=== PATIENT | female | born 1950 | race African-American/Black ===

== ENCOUNTER 2018-12-08 22:15 | Observation (INO) | payer MEDICARE, OTHER ==
[2018-12-08 22:43] LABS: ABSOLUTE BASOPHILS # (AUTO) 0.1 10^3/uL (0.0-0.2); ABSOLUTE EOSINOPHILS # (AUTO) 0.1 10^3/uL (0.0-0.6); ABSOLUTE LYMPHOCYTES (AUTO) 2.3 10^3/uL (0.5-4.7); ABSOLUTE MONOCYTES (AUTO) 0.6 10^3/uL (0.1-1.4); ABSOLUTE NEUT (AUTO) 4.2 10^3/uL (1.7-8.2); EOSINOPHILS % (AUTO) 1.1 % (0-6); HEMATOCRIT 39.6 % (36.0-47.0); HEMOGLOBIN 13.4 g/dL (12.0-15.5); LYMPHOCYTES % (AUTO) 31.9 % (13-45); MEAN CORPUSCULAR HEMOGLOBIN 31.4 pg (27.0-33.4); MEAN CORPUSCULAR HGB CONC 33.9 g/dL (32.0-36.0); MEAN CORPUSCULAR VOLUME 93 fl (80-97); MONOCYTES % (AUTO) 8.6 % (3-13); PLATELET COUNT 323 10^3/uL (150-450); RED BLOOD COUNT 4.27 10^6/uL (3.72-5.28); RED CELL DISTRIBUTION WIDTH 13.4 % (11.5-14.0); SEGMENTED NEUTROPHILS % (AUTO) 57.4 % (42-78); TOTAL CELLS COUNTED % (AUTO) 100 %; WHITE BLOOD COUNT 7.3 10^3/uL (4.0-10.5)
[2018-12-08 23:02] LABS: ALBUMIN 4.5 g/dL (3.5-5.0); ALKALINE PHOSPHATASE 76 U/L (38-126); ANION GAP 15 (5-19); ASPARTATE AMINO TRANSFERASE 30 U/L (14-36); BILIRUBIN,DIRECT 0.2 mg/dL (0.0-0.4); BILIRUBIN,TOTAL 0.2 mg/dL (0.2-1.3); BLOOD UREA NITROGEN 27 mg/dL (7-20); CALCIUM 10.1 mg/dL (8.4-10.2); CARBON DIOXIDE 20 mmol/L (22-30); CHLORIDE 106 mmol/L (98-107); GLUCOSE 124 mg/dL (75-110); POTASSIUM 3.8 mmol/L (3.6-5.0); TOTAL PROTEIN 7.6 g/dL (6.3-8.2)
[2018-12-08] MEDS ORDERED: NITROGLYCERIN 0.4 MG/TAB 25 TAB/BOTTLE SL PRN (23:13)
--- NOTE | 2018-12-08 23:47 | ER Document Report ---
ED General - General Chief Complaint: Chest Pain Stated Complaint: CHEST PAIN Time Seen by Provider: 12/08/18 22:53 Primary Care Provider: DAVID ALDANA MD [Primary Care Provider] - Follow up as needed - HPI Notes: Patient is a 68-year-old female who presents emergency department for evaluation of chest tightness. She states this started after about 6 PM. They were walking around. It seemed to get progressively worse. She states she has some associated difficulty breathing, but could not really associated with being worse than her recent shortness of breath. She states she has a history of allergies. She was in a home area, attributed it to that. She had some nausea, but this was after eating. She denies any emesis. The pain does not radiate. She states it is worse it was a 7 out of 10. She received aspirin and nitroglycerin in route via EMS. She states her pain is currently a 3 out of 10. She has had a negative stress test in the past, but it was over 3 years ago. - Related Data Allergies/Adverse Reactions: Sulfa (Sulfonamide Antibiotics) Allergy (Verified 12/08/18 22:36) sulfamethoxazole [From Bactrim] Allergy (Verified 12/08/18 22:36) trimethoprim [From Bactrim] Allergy (Verified 12/08/18 22:36) Past Medical History - General Information source: Patient - Social History Smoking Status: Never Smoker Family History: CVA Patient has suicidal ideation: No Patient has homicidal ideation: No - Past Medical History Cardiac Medical History: Reports: Hx Hypercholesterolemia, Hx Hypertension Pulmonary Medical History: Reports: Other - Seasonal allergies Psychiatric Medical History: Reports: Hx Depression, Other - Insomnia Review of Systems - Review of Systems Constitutional: No symptoms reported EENT: No symptoms reported Cardiovascular: See HPI Respiratory: See HPI Gastrointestinal: See HPI Genitourinary: No symptoms reported Musculoskeletal: No symptoms reported Skin: No symptoms reported Neurological/Psychological: No symptoms reported Physical Exam - Vital signs Vitals: Resp Pulse Ox 20 97 12/08/18 22:19 12/08/18 22:19 - Notes Notes: Vital signs reviewed, please refer to chart. Head is normocephalic, atraumatic. Pupils equal round, reactive to light. Neck is supple without meningismus. Heart is regular rate and rhythm. Lungs are clear to auscultation bilaterally. Abdomen is soft, nontender, normoactive bowel sounds throughout. Extremities without cyanosis, clubbing. Posterior calves are nontender. Peripheral pulses are equal. Skin is cool and mildly diaphoretic. Patient is awake, alert, neurological exam is nonfocal. Course - Re-evaluation Re-evalutation: 12/09/18 00:33 This is a 68-year-old female high blood pressure, high cholesterol, who presents emergency department for evaluation of chest tightness. It was worsened with exertion. She is never had anything similar. She describes as a tightness with associated shortness of breath and nausea. On arrival her pain is diminished after receiving nitroglycerin. She was given a second nitroglycerin is now chest pain-free. She is remained stable throughout the course of her stay. Initial EKG failed to reveal any acute ST elevation. Laboratory investigation showed mildly abnormal renal function. I do not have a baseline creatinine for comparison. Her troponin was negative. At this time I spoke with Dr. Fontenot. Given her high heart score and concern for her presentation, we will order repeat troponin. Patient remained stable, will continue to monitor. 12/09/18 02:04 Repeat troponin is negative. Patient is chest pain-free, Nitropaste is in place. Will admit the patient for further care. - Vital Signs Vital signs: Temp Pulse Resp BP Pulse Ox 98.8 F 20 174/87 H 98 12/08/18 22:37 12/08/18 22:20 12/09/18 00:46 12/09/18 00:46 - Laboratory Result Diagrams: 12/08/18 22:30 12/08/18 22:30 Laboratory results interpreted by me: 12/08/18 22:30 Carbon Dioxide 20 L BUN 27 H Creatinine 1.59 H Est GFR ( Amer) 39 L Est GFR (MDRD) Non-Af 32 L Glucose 124 H - Diagnostic Test Radiology reviewed: Image reviewed - EKG Interpretation by Me Additional EKG results interpreted by me: 12/08/18 23:46 Sinus mechanism with a rate of 85 bpm. Normal axis and intervals, no acute ST changes concerning for ischemia or infarction. Discharge - Discharge Clinical Impression: Chest pain Condition: Stable Disposition: ADMITTED OBSERVATION Admitting Provider: Po (Hospitalist) Unit Admitted: Telemetry Referrals: DAVID ALADNA MD [Primary Care Provider] - Follow up as needed
[2018-12-09] MEDS ORDERED: NITROGLYCERIN 2% OINTMENT 1 GM PACKET TP ONE (00:31)
--- NOTE | 2018-12-09 00:46 | RADIOLOGY REPORT (SQ) ---
XR CHEST 1 VIEW EXAM DATE: 12/08/2018 11:46 PM CDT HISTORY: Chest pain. COMPARISON: None. FINDINGS: The heart size is within normal limits. No consolidation, pleural effusion, or pneumothorax is seen. No acute bony findings. IMPRESSION: No evidence of acute cardiopulmonary disease.
[2018-12-09] MEDS ORDERED: ACETAMINOPHEN 325 MG TABLET PO PRN (02:05)
[2018-12-09] MEDS ORDERED: MAG HYDROX/AL HYDROX/SIMETH SUSP 30 ML UDCUP PO PRN (02:05)
[2018-12-09] MEDS ORDERED: NITROGLYCERIN 0.4 MG/TAB 25 TAB/BOTTLE SL PRN (02:05)
[2018-12-09] MEDS ORDERED: LOSARTAN POTASSIUM 50 MG TABLET PO ONE (02:15)
[2018-12-09] MEDS ORDERED: ENALAPRILAT DIHYDRATE INJ/PF 1.25 MG/1 ML SDV IV ONE (04:15)
[2018-12-09] MEDS ORDERED: LORAZEPAM 0.5 MG TABLET PO ONE (05:00)
[2018-12-09] MEDS ORDERED: REGADENOSON INJ 0.4 MG/5 ML DISP.SYRIN IV ONE (05:00)
[2018-12-09] MEDS ORDERED: LORAZEPAM 0.5 MG TABLET PO PRN (07:59)
--- NOTE | 2018-12-09 08:44 | EKG REPORT ---
SEVERITY:- ABNORMAL ECG - SINUS RHYTHM INFERIOR INFARCT, AGE INDETERMINATE : Confirmed by: Tremaine Soliz MD 09-Dec-2018 08:43:22
[2018-12-09 09:05] LABS: HEMATOCRIT 36.6 % (36.0-47.0); HEMOGLOBIN 12.3 g/dL (12.0-15.5); MEAN CORPUSCULAR HGB CONC 33.6 g/dL (32.0-36.0); MEAN CORPUSCULAR VOLUME 92 fl (80-97); PLATELET COUNT 292 10^3/uL (150-450); RED BLOOD COUNT 3.96 10^6/uL (3.72-5.28); RED CELL DISTRIBUTION WIDTH 13.4 % (11.5-14.0); WHITE BLOOD COUNT 6.8 10^3/uL (4.0-10.5)
[2018-12-09 09:30] LABS: ANION GAP 12 (5-19); BLOOD UREA NITROGEN 32 mg/dL (7-20); CALCIUM 9.9 mg/dL (8.4-10.2); CARBON DIOXIDE 21 mmol/L (22-30); CHLORIDE 105 mmol/L (98-107); GLUCOSE 112 mg/dL (75-110); POTASSIUM 3.9 mmol/L (3.6-5.0)
[2018-12-09] MEDS ORDERED: (PENDING PHARMACY ID) (Azelastine/Fluticasone [Dymista Nasal Spray] 1 SPRAY) NASL SCH (10:00)
[2018-12-09] MEDS ORDERED: LOSARTAN POTASSIUM 50 MG TABLET PO SCH (10:00)
[2018-12-09] MEDS: SIMVASTATIN 40 MG TABLET PO SCH (10:01)
[2018-12-09] MEDS: MONTELUKAST SODIUM 10 MG TABLET PO SCH (10:03)
[2018-12-09] MEDS: AMLODIPINE BESYLATE 5 MG TABLET PO SCH (10:03)
[2018-12-09] MEDS: ASPIRIN 81 MG TABLET, ENT COATED PO SCH (10:03)
[2018-12-09] MEDS: CITALOPRAM HYDROBROMIDE 20 MG TABLET PO SCH (10:03)
[2018-12-09] MEDS: TRIAMTERENE/HYDROCHLOROTHIAZIDE 37.5-25 MG TABLET PO SCH (10:03)
[2018-12-09] MEDS: CETIRIZINE 5 MG TABLET PO SCH (10:03)
[2018-12-09] MEDS: HYDRALAZINE HCL 25 MG TABLET PO SCH ×3 (10:04→22:14)
[2018-12-09] MEDS: LISINOPRIL 10 MG TABLET PO SCH (10:06)
[2018-12-09 10:44] LABS: APPEARANCE,URINE SLIGHTLY-CLOUDY; BILIRUBIN,URINE NEGATIVE (NEGATIVE); COLOR,URINE YELLOW; GLUCOSE, URINE NEGATIVE (NEGATIVE); KETONES,URINE TRACE mg/dL (NEGATIVE); LEUKOCYTE ESTERASE,URINE MODERATE (NEGATIVE); NITRITE,URINE NEGATIVE (NEGATIVE); PROTEIN,URINE NEGATIVE (NEGATIVE); URINE SPECIFIC GRAVITY 1.027
--- NOTE | 2018-12-09 15:11 | PDOC PROGRESS REPORT ---
Subjective Progress Note for:: 12/09/18 Subjective:: The patient is a 68-year-old female with a past medical history of hypertension, hyperlipidemia, anxiety and depression, seasonal allergies, and obesity who was admitted early this morning by the insurance underwriter sales for chest pain. Patient was seen on afternoon rounds with family members present. Additional details regarding her presenting complaint were obtained. The patient reported several hours of progressively worsening dyspnea, chest heaviness, and generalized weakness culminating in chest pressure and a syncopal episode. Does not appear that the syncopal episode was related to any of the emergency providers and therefore has unfortunately gone unevaluated. She reports that she is feeling well at present, does continue to have postnasal drip with a nonproductive cough. She denies any additional symptoms of dyspnea, dizziness/lightheadedness, syncope/near syncope, or chest discomfort. However, the patient has not yet been ambulatory. She denies fever, chills, chest pain, palpitations, dyspnea, orthopnea, abdominal pain, nausea vomiting diarrhea. She is actually requesting to be discharged home today; given the syncopal episode, she is advised that I cannot safely discharge her until further evaluation is completed. All questions and concerns were addressed. Nursing was at bedside during assessment; no specific concerns from their perspective. Reason For Visit: CP,CAD,ARF Physical Exam Vital Signs: Temp Pulse Resp BP Pulse Ox 97.6 F 74 18 130/55 H 97 12/09/18 07:28 12/09/18 07:28 12/09/18 07:28 12/09/18 07:28 12/09/18 07:28 Intake & Output 12/08/18 12/09/18 12/10/18 06:59 06:59 06:59 Weight 82.6 kg General appearance: PRESENT: no acute distress, cooperative, well-developed, well-nourished - Overweight Head exam: PRESENT: atraumatic, normocephalic Eye exam: PRESENT: conjunctiva pink, EOMI, PERRLA. ABSENT: scleral icterus Ear exam: PRESENT: normal external ear exam Mouth exam: PRESENT: moist, tongue midline Neck exam: ABSENT: carotid bruit, JVD, lymphadenopathy, thyromegaly Respiratory exam: PRESENT: clear to auscultation jaja, symmetrical, unlabored. ABSENT: rales, rhonchi, wheezes Cardiovascular exam: PRESENT: RRR, +S1, +S2. ABSENT: diastolic murmur, rubs, systolic murmur Pulses: PRESENT: normal dorsalis pedis pul Vascular exam: PRESENT: normal capillary refill GI/Abdominal exam: PRESENT: normal bowel sounds, soft. ABSENT: distended, guarding, mass, organolmegaly, rebound, tenderness Rectal exam: PRESENT: deferred Extremities exam: PRESENT: full ROM. ABSENT: calf tenderness, clubbing, pedal edema Neurological exam: PRESENT: alert, awake, oriented to person, oriented to place, oriented to time, oriented to situation, CN II-XII grossly intact. ABSENT: motor sensory deficit Psychiatric exam: PRESENT: appropriate affect, normal mood. ABSENT: homicidal ideation, suicidal ideation Skin exam: PRESENT: dry, intact, warm. ABSENT: cyanosis, rash Results Laboratory Results: 12/09/18 08:47 12/09/18 08:47 12/08/18 12/08/18 12/09/18 22:30 22:30 07:11 WBC 7.3 RBC 4.27 Hgb 13.4 Hct 39.6 MCV 93 MCH 31.4 MCHC 33.9 RDW 13.4 Plt Count 323 Seg Neutrophils % 57.4 Sodium 141.4 Potassium 3.8 Chloride 106 Carbon Dioxide 20 L Anion Gap 15 BUN 27 H Creatinine 1.59 H Est GFR ( Amer) 39 L Glucose 124 H Calcium 10.1 Total Bilirubin 0.2 AST 30 Alkaline Phosphatase 76 Total Protein 7.6 Albumin 4.5 TSH 1.34 Urine Color Urine Appearance Urine pH Ur Specific [place] Urine Protein Urine Glucose (UA) Urine Ketones Urine Blood Urine Nitrite Ur Leukocyte Esterase Urine WBC (Auto) Urine RBC (Auto) 12/09/18 12/09/18 12/09/18 08:47 08:47 10:12 WBC 6.8 RBC 3.96 Hgb 12.3 Hct 36.6 MCV 92 MCH 31.0 MCHC 33.6 RDW 13.4 Plt Count 292 Seg Neutrophils % Sodium 138.3 Potassium 3.9 Chloride 105 Carbon Dioxide 21 L Anion Gap 12 BUN 32 H Creatinine 1.46 H Est GFR ( Amer) 43 L Glucose 112 H Calcium 9.9 Total Bilirubin AST Alkaline Phosphatase Total Protein Albumin TSH Urine Color YELLOW Urine Appearance SLIGHTLY-CLOUDY Urine pH 5.0 Ur Specific [place] 1.027 Urine Protein NEGATIVE Urine Glucose (UA) NEGATIVE Urine Ketones TRACE H Urine Blood NEGATIVE Urine Nitrite NEGATIVE Ur Leukocyte Esterase MODERATE H Urine WBC (Auto) 56 Urine RBC (Auto) 6 12/08/18 12/09/18 12/09/18 22:30 01:10 07:11 Troponin I < 0.012 < 0.012 < 0.012 Impressions: Chest X-Ray 12/08/18 23:46 IMPRESSION: No evidence of acute cardiopulmonary disease. Assessment and Plan - Diagnosis (1) Syncope and collapse Is this a current diagnosis for this admission?: Yes Plan: The patient has been admitted to the medical floor and continuous cardiac telemetry. We will obtain orthostatic blood pressures. We will check d-dimer to rule out pulmonary embolus. Serial troponins are negative x3. Carotid Doppler pending. CT head pending. Nuclear stress test pending. Fall precautions. (2) Acute renal failure Is this a current diagnosis for this admission?: Yes Plan: Likely prerenal secondary to syncope and collapse. No baseline Laboratory work is available. Creatinine 1.59 on admission; down slightly to 1.46. We will obtain orthostatic vital signs and then start gentle IV fluids. Encourage p.o. fluids. Avoid nephrotoxic medications as able. (3) Chest pain Qualifiers: Chest pain type: unspecified Qualified Code(s): R07.9 - Chest pain, unspecified Is this a current diagnosis for this admission?: Yes Plan: EKG demonstrated normal sinus rhythm. Chest x-ray is benign. Serial troponins are negative. TSH is normal. We will obtain lipid panel and A1c with a.m. lab work. D-dimer to rule out PE. Management of hypertension. Daily aspirin and statin therapy. Nuclear stress test pending. (4) Hypertension Is this a current diagnosis for this admission?: Yes Plan: Continue home dose lisinopril and Maxide. Start amlodipine 5 mg daily and hydralazine 25 mg p.o. every 8 hours. Cardiac diet. - Time Time Spent with patient: 35 or more minutes Anticipated discharge: Home Within: within 24 hours
[2018-12-09 15:38] LABS: CHOLESTEROL 132.85 mg/dL (0-200); TRIGLYCERIDES 103 mg/dL (<150)
[2018-12-09 15:57] LABS: DIRECT LDL 79 mg/dL (<100)
--- NOTE | 2018-12-09 16:04 | RADIOLOGY REPORT (SQ) ---
EXAM DESCRIPTION: CT HEAD WITHOUT COMPLETED DATE/TIME: 12/09/2018 3:57 pm REASON FOR STUDY: syncope E05.00 THYROTOXICOSIS W DIFFUSE GOITER W/O THYROTOXIC CRISIS R07.9 CHEST PAIN, UNSPECIFIED R55 SYNCOPE AND COLLAPSE COMPARISON: None. TECHNIQUE: Axial images acquired through the brain without intravenous contrast. Images reviewed wi th bone, brain and subdural windows. Additional sagittal and coronal reconstructions were generated. Images stored on PACS. All CT scanners at this facility use dose modulation, iterative reconstruction, and/or weight based d osing when appropriate to reduce radiation dose to as low as reasonably achievable (ALARA). [facility]: Dose Right [facility]: CareDose [facility]: Dose Right [facility]: Teradose 4D [facility]: [employer] RADIATION DOSE: CT Rad equipment meets quality standard of care and radiation dose reduction techniq ues were employed. CTDIvol: 53.2 mGy. DLP: 964 mGy-cm. mGy. LIMITATIONS: None. FINDINGS: VENTRICLES: Normal size and contour. CEREBRUM: No masses. No hemorrhage. No midline shift. No evidence for acute infarction. Normal gra y/white matter differentiation. No areas of low density in the white matter. CEREBELLUM: No masses. No hemorrhage. No alteration of density. No evidence for acute infarction. EXTRAAXIAL SPACES: No fluid collections. No masses. ORBITS AND GLOBE: No intra- or extraconal masses. Normal contour of globe without masses. CALVARIUM: No fracture. PARANASAL SINUSES: No fluid or mucosal thickening. SOFT TISSUES: No mass or hematoma. OTHER: No other significant finding. IMPRESSION: NORMAL BRAIN CT WITHOUT CONTRAST. EVIDENCE OF ACUTE STROKE: NO. COMMENT: Quality ID # 436: Final reports with documentation of one or more dose reduction techniques (e.g., Automated exposure control, adjustment of the mA and/or kV according to patient size, use of iterative reconstruction technique) TECHNICAL DOCUMENTATION: JOB ID: [id number] [employer]- All Rights Reserved Reading location - IP/workstation name: [email or web address]
--- NOTE | 2018-12-09 20:20 | RADIOLOGY REPORT (SQ) ---
EXAM DESCRIPTION: CT CHEST ANGIOGRAPHY WITHOUT THEN WITH IV CONTRAST COMPLETED DATE/TME: 12/09/2018 00:00 CLINICAL HISTORY: 68 years, Female, syncope, dyspnea; elevated d-dimer COMPARISON: None. TECHNIQUE: CT of the chest was after the uneventful administration of intravenous contrast. Oblique MIPS were created. Images stored on PACS. All CT scanners at this facility use dose modulation, iterative reconstruction, and/or weight based dosing when appropriate to reduce radiation dose to as low as reasonably achievable (ALARA). [facility]: Dose Right [facility]: CareDose [facility]: Dose Right [facility]: Teradose 4D [facility]: [email or web address] LIMITATIONS: None. FINDINGS: Central airways are patent. Lung windows show bands of opacity about both lung bases, indicating areas of atelectasis and/or scar. Lungs are otherwise clear. Mediastinal windows show a low-density lesion located within the right lobe of the thyroid gland measuring 1.7 x 1.3 cm in size on image 19 of series 3, indeterminate. Scalp are evident about the coronary vessels. There is a small pericardial effusion. Study is adequate for the evaluation of pulmonary emboli. No filling defects are identified to the proximal segmental level. Limited evaluation of the upper abdomen reveals a few subcentimeter low-density lesions about the liver parenchyma which are too small to accurately characterize. No additional suspicious findings are evident within the imaged upper abdomen. There is a small hiatal hernia. Bone windows show no destructive osseous lesions. There is slight leftward curvature of the thoracic spine. IMPRESSION: No evidence of pulmonary embolism or other acute abnormality within the chest. 1.7 cm incidental thyroid nodule. Recommend thyroid US. Reference: J Am Shital Radiol. 2015 Mar;12(2): 143-50 TECHNICAL DOCUMENTATION: Quality ID # 436: Final reports with documentation of one or more dose reduction techniques (e.g., Automated exposure control, adjustment of the mA and/or kV according to patient size, use of iterative reconstruction technique) copyright 2011 [employer]- All Rights Reserved
[2018-12-09] MEDS ORDERED: ZOLPIDEM TARTRATE 5 MG TABLET PO SCH (22:00)
[2018-12-10] MEDS: HYDRALAZINE HCL 25 MG TABLET PO SCH ×2 (06:24→14:53)
[2018-12-10] MEDS: CITALOPRAM HYDROBROMIDE 20 MG TABLET PO SCH ×2 (10:48→10:59)
[2018-12-10] MEDS: TRIAMTERENE/HYDROCHLOROTHIAZIDE 37.5-25 MG TABLET PO SCH (10:48)
[2018-12-10] MEDS: AMLODIPINE BESYLATE 5 MG TABLET PO SCH (10:54)
[2018-12-10 10:55] VITALS: BP 122/52
[2018-12-10] MEDS: LISINOPRIL 10 MG TABLET PO SCH (10:55)
[2018-12-10] MEDS: SIMVASTATIN 40 MG TABLET PO SCH (10:55)
[2018-12-10] MEDS: ASPIRIN 81 MG TABLET, ENT COATED PO SCH (10:55)
[2018-12-10] MEDS: CETIRIZINE 5 MG TABLET PO SCH (10:55)
[2018-12-10] MEDS: MONTELUKAST SODIUM 10 MG TABLET PO SCH (10:55)
[2018-12-10] MEDS ORDERED: ACETAMINOPHEN 325 MG TABLET PO PRN (11:00)
--- NOTE | 2018-12-10 11:49 | RADIOLOGY REPORT (SQ) ---
EXAM DESCRIPTION: U/S THYROID/SFT TISS HD NECK COMPLETED DATE/TIME: 12/10/2018 8:53 am REASON FOR STUDY: 1.[address] E05.00 THYROTOXICOSIS W DIFFUSE GOITER W/O THYROTOXIC CR CHELO R07.9 CHEST PAIN, UNSPECIFIED R55 SYNCOPE AND COLLAPSE COMPARISON: None. TECHNIQUE: Dynamic and static florence-scale images acquired of the thyroid gland. Selected additional c olor/power Doppler images recorded. All images stored to PACS. LIMITATIONS: None. FINDINGS: RIGHT LOBE: Normal size. Homogeneous echotexture. 1.9 by 1.7 x 1.8 cm well-circumscribed isoechoic mixed cystic and solid nodule. No internal calcifications. LEFT LOBE: Normal size. Homogeneous echotexture. Slightly smaller but similar morphology isoechoic mixed solid cystic nodule lower pole. No internal calcifications. ISTHMUS: Normal size. Homogeneous echotexture. No cystic or solid masses. OTHER: No other significant finding. IMPRESSION: Solitary nodules in both lobes. 1 year follow-up is recommended. COMMENT: TR-2 TECHNICAL DOCUMENTATION: JOB ID: [id number] [employer]- All Rights Reserved Reading location - IP/workstation name: [email or web address]
--- NOTE | 2018-12-10 15:15 | RADIOLOGY REPORT (SQ) ---
EXAM DESCRIPTION: CAROTID DOPPLER COMPLETED DATE/TIME: 12/10/2018 2:42 pm REASON FOR STUDY: syncope E05.00 THYROTOXICOSIS W DIFFUSE GOITER W/O THYROTOXIC CRISIS R07.9 CHEST PAIN, UNSPECIFIED R55 SYNCOPE AND COLLAPSE COMPARISON: None. TECHNIQUE: Grayscale ultrasound, Doppler velocity and spectra, and color Doppler images acquired of the extra-cranial carotid and vertebral arteries. Images stored on PACS. LIMITATIONS: None. FINDINGS: RIGHT CAROTID CCA Velocities: Within normal limits. ICA Velocities Peak systolic 0.94 m/s. End diastolic 0.19 m/s. Proximal ICA/CCA peak systolic ratio 1.05. Heterogenous plaque in the carotid bulb and internal carotid artery. LEFT CAROTID CCA Velocities: Within normal limits. ICA Velocities Peak systolic 1.91 m/s. End diastolic 0.43 m/s. Proximal ICA/CCA peak systolic ratio 1.59. Heterogenous plaque in the carotid bulb and proximal internal carotid artery. VERTEBRAL ARTERIES: Antegrade flow. Normal waveforms. SUBCLAVIAN ARTERIES: No finding. OTHER: No other significant finding. IMPRESSION: BILATERAL PLAQUE. LESS THAN 50% STENOSIS OF THE RIGHT INTERNAL CAROTID ARTERY. 50- 69% STENOSIS OF THE LEFT INTERNAL CAROTID ARTERY. COMMENT: Quality ID #195: Velocity criteria are extrapolated from the diameter data as defined by t he Society of Radiologists in Ultrasound Consensus Conference. Radiology 2003: 229; 340-346. TECHNICAL DOCUMENTATION: JOB ID: [id number] [employer]- All Rights Reserved Reading location - IP/workstation name: [email or web address]
[2018-12-10] MEDS ORDERED: NORMAL SALINE 1000 ML 1,000 ML IV ONE (15:32)
--- NOTE | 2018-12-10 20:15 | PDOC H&P ---
History of Present Illness Admission Date/PCP: 12/09/18 02:40 DAVID ALDANA MD Patient complains of: Shortness of breath and chest tightness History of Present Illness: KALA ELLISON is a 68 year old female with a past medical history of hypertension, allergic bronchitis and anxiety. She presents with 6 hours of chest tightness associated with shortness of breath and nausea without vomiting prompting evaluation emergency room where she is found to have uncontrolled hypertension, an EKG with pathologic inferior wall Q waves and an elevated creatinine of 1.5. She receives Nitropaste and referred to the hospitalist for admission. Patient admits several episodes previously which were thought secondary to panic. Her last cardiac stress test was 3 years ago. She is unaware of an abnormal EKG. She denies chest pain, recent change in medications and is otherwise felt well. Past Medical History Cardiac Medical History: Reports: Hyperlipidema, Hypertension Pulmonary Medical History: Reports: Bronchitis, Other - Seasonal allergies Psychiatric Medical History: Reports: Depression, General Anxiety Disorder, Other - Insomnia Social History Information Source: Patient Lives with: Spouse/Significant other Smoking Status: Never Smoker Electronic Cigarette use?: No Frequency of Alcohol Use: None Hx Recreational Drug Use: No Drugs: None Hx Prescription Drug Abuse: No - Advance Directive Resuscitation Status: Full Code Family History Family History: CVA Parental Family History Reviewed: Yes Children Family History Reviewed: Yes Sibling(s) Family History Reviewed.: Yes Medication/Allergy Home Medications: Azelastine/Fluticasone [Dymista Nasal [place]] 1 spray NASL DAILY 12/09/18 Citalopram Hydrobromide [Citalopram HBr] 40 mg PO DAILY 12/09/18 Ipratropium [place] [Atrovent 0.06% Nasal [place]] 2 spray NASL QID PRN 12/09/18 Levocetirizine Dihydrochloride [Xyzal] 5 mg PO DAILY 12/09/18 Lisinopril [Prinivil] 10 mg PO DAILY 12/09/18 Lorazepam [Ativan 0.5 mg Tablet] 0.5 mg PO BIDP PRN 12/09/18 Meloxicam [Mobic] 7.5 mg PO PRN PRN 12/09/18 Montelukast Sodium [Singulair] 10 mg PO DAILY 12/09/18 Simvastatin [Zocor 40 mg Tablet] 40 mg PO DAILY 12/09/18 Triamterene/Hydrochlorothiazid [Triamterene-Hctz 37.5-25 mg Tb] 37.5 mg PO DAILY 12/09/18 Ubidecarenone [Coq-10] 30 mg PO DAILY 12/09/18 Zolpidem Tartrate [Ambien] 10 mg PO QHS 12/09/18 Allergies/Adverse Reactions: Sulfa (Sulfonamide Antibiotics) Allergy (Verified 12/08/18 22:36) sulfamethoxazole [From Bactrim] Allergy (Verified 12/08/18 22:36) trimethoprim [From Bactrim] Allergy (Verified 12/08/18 22:36) Review of Systems Constitutional: ABSENT: chills, fever(s), headache(s), weight gain, weight loss Eyes: ABSENT: visual disturbances Ears: ABSENT: hearing changes Cardiovascular: ABSENT: chest pain, dyspnea on exertion, edema, orthropnea, palpitations Respiratory: ABSENT: cough, hemoptysis Gastrointestinal: ABSENT: abdominal pain, constipation, diarrhea, hematemesis, h ematochezia, nausea, vomiting Genitourinary: ABSENT: dysuria, hematuria Musculoskeletal: ABSENT: joint swelling Integumentary: ABSENT: rash, wounds Neurological: ABSENT: abnormal gait, abnormal speech, confusion, dizziness, focal weakness, syncope Psychiatric: ABSENT: anxiety, depression, homidical ideation, suicidal ideation Endocrine: ABSENT: cold intolerance, heat intolerance, polydipsia, polyuria Hematologic/Lymphatic: ABSENT: easy bleeding, easy bruising Physical Exam Vital Signs: Temp Pulse Resp BP Pulse Ox 97.8 F 91 18 188/89 H 98 12/09/18 03:28 12/09/18 03:28 12/09/18 03:28 12/09/18 03:28 12/09/18 03:28 Intake & Output 12/07/18 12/08/18 12/09/18 11:59 11:59 11:59 Weight 82.6 kg General appearance: PRESENT: no acute distress, well-developed, well-nourished Head exam: PRESENT: atraumatic, normocephalic Eye exam: PRESENT: conjunctiva pink, EOMI, PERRLA. ABSENT: scleral icterus Ear exam: PRESENT: normal external ear exam Mouth exam: PRESENT: moist, tongue midline Neck exam: ABSENT: carotid bruit, JVD, lymphadenopathy, thyromegaly Respiratory exam: PRESENT: clear to auscultation jaja. ABSENT: rales, rhonchi, wheezes Cardiovascular exam: PRESENT: RRR. ABSENT: diastolic murmur, rubs, systolic murmur Pulses: PRESENT: normal dorsalis pedis pul Vascular exam: PRESENT: normal capillary refill GI/Abdominal exam: PRESENT: normal bowel sounds, soft. ABSENT: distended, guarding, mass, organolmegaly, rebound, tenderness Rectal exam: PRESENT: deferred Extremities exam: PRESENT: full ROM. ABSENT: calf tenderness, clubbing, pedal edema Neurological exam: PRESENT: alert, awake, oriented to person, oriented to place, oriented to time, oriented to situation, CN II-XII grossly intact. ABSENT: motor sensory deficit Psychiatric exam: PRESENT: appropriate affect, normal mood. ABSENT: homicidal ideation, suicidal ideation Skin exam: PRESENT: dry, intact, warm. ABSENT: cyanosis, rash Results Laboratory Results: 12/08/18 22:30 12/08/18 22:30 12/08/18 12/08/18 22:30 22:30 WBC 7.3 RBC 4.27 Hgb 13.4 Hct 39.6 MCV 93 MCH 31.4 MCHC 33.9 RDW 13.4 Plt Count 323 Seg Neutrophils % 57.4 Sodium 141.4 Potassium 3.8 Chloride 106 Carbon Dioxide 20 L Anion Gap 15 BUN 27 H Creatinine 1.59 H Est GFR ( Amer) 39 L Glucose 124 H Calcium 10.1 Total Bilirubin 0.2 AST 30 Alkaline Phosphatase 76 Total Protein 7.6 Albumin 4.5 12/08/18 12/09/18 22:30 01:10 Troponin I < 0.012 < 0.012 Impressions: Chest X-Ray 12/08/18 23:46 IMPRESSION: No evidence of acute cardiopulmonary disease. Assessment and Plan - Diagnosis (1) Chest pain Is this a current diagnosis for this admission?: Yes Plan: Atypical chest pain though the patient's pain is atypical there are multiple risk factors for coronary artery disease and subsequently will observe and evaluation of acute coronary syndrome versus coronary artery disease with anginal equivalents. Cardiac monitoring blood pressure Q6 hours ,TSH, lipid profile, serial cardiac enzymes and cardiac stress test (2) Anxiety Is this a current diagnosis for this admission?: Yes Plan: Follow-up TSH, outpatient regiment with PRN Ativan, consider longer acting agent (3) Acute renal failure Is this a current diagnosis for this admission?: Yes Plan: Avoid nephrotoxic meds and doses, follow-up UA (4) Hypertension Is this a current diagnosis for this admission?: Yes Plan: Likely secondary to uncontrolled anxiety, benzodiazepine followed by CINDY inhibitor, hydralazine and nitrate.
--- NOTE | 2018-12-10 23:26 | DRAGON STRESS TEST REPORT ---
Intravenous Lexiscan Cardiolite stress test using single photon emmision computerized tomography. Date of procedure: 12/10/2018. Ordering Provider: Dr. Yoshi Fontenot. Patient's status: IN Patient. Indication: Chest pain. Coronary risk factors: Age, hypertension, and dyslipidemia. Resting EKG: Sinus Rhythm. Nonspecific T changes anterior leads. Stress EKG: No changes of ischemia. The patient had no chest pain or arrhythmias seen. Note that the patient's complaint of generalized fatigue and weakness. The monitor showed sinus tachycardia and the systolic blood pressure dropped to 70. There were no EKG changes of ischemia. The patient was given 250 mL of normal saline bolus. Subsequent to this the patient's blood pressure came up to 130/55 and the patient's symptoms resolved. Reason for termination: Protocol. Conclusions: Normal EKG and transient hypotensive hemodynamic response to IV Lexiscan. The hypotension responded to IV fluids. Nuclear data: At rest the patient was given 12.96 millicuries of technetium 99m sestamibi injected intravenously. As per protocol rest non gated SPECT images were obtained. Subsequently the patient was given intravenous Lexiscan at a dose of 0.4 mg in 5 mL intravenously, followed by flush with normal saline. Subsequently the stress dose of 36.9 millicuries of technetium 99m sestamibi was injected intravenously. As per protocol stress gated images were obtained. Nuclear interpretation: Review of images showed that all segments of the myocardium had normal perfusion at rest, and normal perfusion post stress with IV Lexiscan. All segments of the myocardium had normal motion, contraction, and thickening by gated study. T. I D. ratio was read by the computer as abnormal at 1.38. Visually this is not reliable.. There is no transient ischemic dilatation of the left ventricle. Computer read rest, and stress left ventricular ejection fraction were 82 %, and 68 %, respectively. Visually both the stress and rest ejection fractions were normal, and greater than 65%. Conclusion: 1. There is no scintigraphic evidence of Lexiscan induced myocardial ischemia. 2. There is no scintigraphic evidence of myocardial infarction/scar. Recommendations: Aggressive risk factor modification, and treating the underlying co- morbidities. I have spoken to Ms. Katerin Hayward, nurse practitioner to take care of the patient about the patient's transient hypotension which was resolved with IV fluids. Later left a message for her that the stress test was negative for ischemia or PA. OZIEL
--- NOTE | 2018-12-11 13:43 | PDOC DISCHARGE SUMMARY ---
Impression - Admit/DC Date/PCP Admission Date/Primary Care Provider: 12/09/18 02:40 DAVID ALDANA MD Discharge Date: 12/10/18 - Discharge Diagnosis (1) Syncope and collapse Is this a current diagnosis for this admission?: Yes (2) Acute renal failure Is this a current diagnosis for this admission?: Yes (3) Chest pain Is this a current diagnosis for this admission?: Yes (4) Hypertension Is this a current diagnosis for this admission?: Yes - Additional Information Resuscitation Status: Full Code Discharge Diet: Cardiac Discharge Activity: Activity As Tolerated, Balance Activity w/Rest Referrals: DAVID ALDANA MD [Primary Care Provider] - 12/17/18 10:00 am Prescriptions: Albuterol Sulfate [Albuterol Sulfate Hfa] 8.5 gm IH Q4HP PRN #1 [email or web address] PRN Reason: Shortness Of Breath Home Medications: Acetaminophen [Tylenol 325 mg Tablet] 650 mg PO Q4HP PRN tablet 12/09/18 Aspirin [Ecotrin 81 mg EC Tablet] 81 mg PO DAILY tabec 12/09/18 Azelastine/Fluticasone [Dymista Nasal [place]] 1 spray NASL .DAILY 12/09/18 Azelastine/Fluticasone [Dymista Nasal [place]] 1 spray NASL DAILY 12/09/18 Citalopram Hydrobromide [Celexa 20 mg Tablet] 40 mg PO DAILY tablet 12/09/18 Citalopram Hydrobromide [Celexa 40 mg Tablet] 40 mg PO DAILY 12/09/18 Ipratropium [place] 2 spray NASL QIDP PRN 12/09/18 Levocetirizine Dihydrochloride [Xyzal] 5 mg PO DAILY 12/09/18 Lisinopril [Zestril] 10 mg PO DAILY 12/09/18 Lorazepam [Ativan 0.5 mg Tablet] 0.5 mg PO BIDP PRN 12/09/18 Meloxicam [Mobic] 7.5 mg PO DAILY 12/09/18 Montelukast Sodium [Singulair 10 mg Tablet] 10 mg PO DAILY tablet 12/09/18 Montelukast Sodium [Singulair 10 mg Tablet] 10 mg PO QPM 12/09/18 Simvastatin [Zocor 40 mg Tablet] 40 mg PO QPM 12/09/18 Triamterene/Hydrochlorothiazid [Maxzide-25 Tablet] 1 tab PO DAILY 12/09/18 Ubidecarenone/Vit E Acet [Co Q-10 100 mg Softgel] 1 cap PO DAILY 12/09/18 Zolpidem Tartrate [Ambien 5 mg Tablet] 10 mg PO QHS tablet 12/09/18 Zolpidem Tartrate [Ambien] 10 mg PO QHS 12/09/18 Acetaminophen [Tylenol 325 mg Tablet] 650 mg PO Q6HP PRN tablet 12/10/18 Albuterol Sulfate [Albuterol Sulfate Hfa] 8.5 gm IH Q4HP PRN #1 [id number] 12/10/18 History of Present Illiness History of Present Illness: Per H&P by Dr. Fontenot: KALA ELLISON is a 68 year old female with a past medical history of hypertension, allergic bronchitis and anxiety. She presents with 6 hours of chest tightness associated with shortness of breath and nausea without vomiting prompting evaluation emergency room where she is found to have uncontrolled hypertension, an EKG with pathologic inferior wall Q waves and an elevated creatinine of 1.5. She receives Nitropaste and referred to the hospitalist for admission. Patient admits several episodes previously which were thought secondary to panic. Her last cardiac stress test was 3 years ago. She is unaware of an abnormal EKG. She denies chest pain, recent change in medications and is otherwise felt well. Hospital Course Hospital Course: (1) Syncope and collapse The patient was admitted to the medical floor and continuous cardiac telemetry. D-dimer was slightly elevated. Fortunately CTA Chest was nml. Serial troponins are negative x3. Carotid Doppler is negative for hemodynamically significant stenosis. CT head is nml. Nuclear stress test is nml per cardiology; finalized report pending. She was found to have orthostatic hypotension. She was provided a 1L NS bolus and encouraged to drink plenty of fluids and change positions slowly. At time of discharge she is ambulatory and asymptomatic. (2) Acute renal failure Likely prerenal secondary to syncope and collapse. No baseline Laboratory work is available. Creatinine 1.59 on admission; down slightly to 1.46. She was found to have orthostatic hypotension. She was provided a 1L NS bolus and encouraged to drink plenty of fluids and change positions slowly. Encourage p.o. fluids. Recommend routine monitoring of renal function by PCP. (3) Chest pain EKG demonstrated normal sinus rhythm w/ abnml q-waves. Chest x-ray is benign. Serial troponins are negative. TSH is normal. PE has been ruled out. A1C and Lipid panel are acceptable. Nuclear stress test is negative. Unclear cause of chest discomfort; possibly related to anxiety or respiratory distress as the patient described reactive airway symptoms related to multiple allergen exposures for several hours prior to onset of chest discomfort. (4) Hypertension Continue home dose lisinopril and Maxide. Cardiac diet. Continued management by PCP. Physical Exam Vital Signs: Temp Pulse Resp BP Pulse Ox 97.8 F 80 16 122/52 L 100 12/10/18 17:50 12/10/18 17:50 12/10/18 17:50 12/10/18 17:50 12/10/18 17:50 Intake & Output 12/10/18 12/11/18 12/12/18 06:59 06:59 06:59 Intake Total 480 Balance 480 Weight 82.9 kg General appearance: PRESENT: no acute distress, cooperative, well-developed, well-nourished - overweight Head exam: PRESENT: atraumatic, normocephalic Eye exam: PRESENT: conjunctiva pink, EOMI, PERRLA. ABSENT: scleral icterus Ear exam: PRESENT: normal external ear exam Mouth exam: PRESENT: moist, tongue midline Neck exam: ABSENT: carotid bruit, JVD, lymphadenopathy, thyromegaly Respiratory exam: PRESENT: clear to auscultation jaja, symmetrical, unlabored. ABSENT: rales, rhonchi, wheezes Cardiovascular exam: PRESENT: RRR. ABSENT: diastolic murmur, rubs, systolic murmur Pulses: PRESENT: normal dorsalis pedis pul Vascular exam: PRESENT: normal capillary refill GI/Abdominal exam: PRESENT: normal bowel sounds, soft. ABSENT: distended, guarding, mass, organolmegaly, rebound, tenderness Rectal exam: PRESENT: deferred Extremities exam: PRESENT: full ROM. ABSENT: calf tenderness, clubbing, pedal edema Musculoskeletal exam: PRESENT: ambulatory Neurological exam: PRESENT: alert, awake, oriented to person, oriented to place, oriented to time, oriented to situation, CN II-XII grossly intact. ABSENT: motor sensory deficit Psychiatric exam: PRESENT: appropriate affect, normal mood. ABSENT: homicidal ideation, suicidal ideation Skin exam: PRESENT: dry, intact, warm. ABSENT: cyanosis, rash Results Laboratory Results: WBC 6.8 10^3/uL (4.0-10.5) 12/09/18 08:47 RBC 3.96 10^6/uL (3.72-5.28) 12/09/18 08:47 Hgb 12.3 g/dL (12.0-15.5) 12/09/18 08:47 Hct 36.6 % (36.0-47.0) 12/09/18 08:47 MCV 92 fl (80-97) 12/09/18 08:47 MCH 31.0 pg (27.0-33.4) 12/09/18 08:47 MCHC 33.6 g/dL (32.0-36.0) 12/09/18 08:47 RDW 13.4 % (11.5-14.0) 12/09/18 08:47 Plt Count 292 10^3/uL (150-450) 12/09/18 08:47 Lymph % (Auto) 31.9 % (13-45) 12/08/18 22:30 [place] % (Auto) 8.6 % (3-13) 12/08/18 22:30 Eos % (Auto) 1.1 % (0-6) 12/08/18 22:30 Baso % (Auto) 1.0 % (0-2) 12/08/18 22:30 Absolute Neuts (auto) 4.2 10^3/uL (1.7-8.2) 12/08/18 22:30 Absolute Lymphs (auto) 2.3 10^3/uL (0.5-4.7) 12/08/18 22:30 Absolute Monos (auto) 0.6 10^3/uL (0.1-1.4) 12/08/18 22:30 Absolute Eos (auto) 0.1 10^3/uL (0.0-0.6) 12/08/18 22:30 Absolute Basos (auto) 0.1 10^3/uL (0.0-0.2) 12/08/18 22:30 Seg Neutrophils % 57.4 % (42-78) 12/08/18 22:30 D-Dimer 0.54 ug/mL (0.00-0.50) H 12/09/18 15:10 Sodium 138.3 mmol/L (137-145) 12/09/18 08:47 Potassium 3.9 mmol/L (3.6-5.0) 12/09/18 08:47 Chloride 105 mmol/L (98-107) 12/09/18 08:47 Carbon Dioxide 21 mmol/L (22-30) L 12/09/18 08:47 Anion Gap 12 (5-19) 12/09/18 08:47 BUN 32 mg/dL (7-20) H 12/09/18 08:47 Creatinine 1.46 mg/dL (0.52-1.25) H 12/09/18 08:47 Est GFR ( Amer) 43 (>60) L 12/09/18 08:47 Est GFR (MDRD) Non-Af 35 (>60) L 12/09/18 08:47 Glucose 112 mg/dL (75-110) H 12/09/18 08:47 Hemoglobin A1c % 5.9 % (4.7-6.0) 12/09/18 15:10 Calcium 9.9 mg/dL (8.4-10.2) 12/09/18 08:47 Total Bilirubin 0.2 mg/dL (0.2-1.3) 12/08/18 22:30 Direct Bilirubin 0.2 mg/dL (0.0-0.4) 12/08/18 22:30 Neonat Total Bilirubin Not Reportable 12/08/18 22:30 Neonat Direct Bilirubin Not Reportable 12/08/18 22:30 Neonat Indirect Bili Not Reportable 12/08/18 22:30 AST 30 U/L (14-36) 12/08/18 22:30 ALT 23 U/L (<35) 12/08/18 22:30 Alkaline Phosphatase 76 U/L (38-126) 12/08/18 22:30 Troponin I < 0.012 ng/mL 12/09/18 07:11 NT-Pro-B Natriuret Pep 63 pg/mL (5-900) 12/09/18 15:10 Total Protein 7.6 g/dL (6.3-8.2) 12/08/18 22:30 Albumin 4.5 g/dL (3.5-5.0) 12/08/18 22:30 Triglycerides 103 mg/dL (<150) 12/09/18 15:10 Cholesterol 132.85 mg/dL (0-200) 12/09/18 15:10 LDL Cholesterol Direct 79 mg/dL (<100) 12/09/18 15:10 VLDL Cholesterol 21.0 mg/dL (10-31) 12/09/18 15:10 HDL Cholesterol 36 mg/dL (>40) L 12/09/18 15:10 TSH 1.34 uIU/mL (0.47-4.68) 12/09/18 07:11 Urine Color YELLOW 12/09/18 10:12 Urine Appearance SLIGHTLY-CLOUDY 12/09/18 10:12 Urine pH 5.0 (5.0-9.0) 12/09/18 10:12 Ur Specific [place] 1.027 12/09/18 10:12 Urine Protein NEGATIVE mg/dL (NEGATIVE) 12/09/18 10:12 Urine Glucose (UA) NEGATIVE mg/dL (NEGATIVE) 12/09/18 10:12 Urine Ketones TRACE mg/dL (NEGATIVE) H 12/09/18 10:12 Urine Blood NEGATIVE (NEGATIVE) 12/09/18 10:12 Urine Nitrite NEGATIVE (NEGATIVE) 12/09/18 10:12 Urine Bilirubin NEGATIVE (NEGATIVE) 12/09/18 10:12 Urine Urobilinogen 2.0 mg/dL (<2.0) H 12/09/18 10:12 Ur Leukocyte Esterase MODERATE (NEGATIVE) H 12/09/18 10:12 Urine WBC (Auto) 56 /HPF 12/09/18 10:12 Urine RBC (Auto) 6 /HPF 12/09/18 10:12 U Hyaline Cast (Auto) 3 /LPF 12/09/18 10:12 Urine Bacteria (Auto) TRACE /HPF 12/09/18 10:12 Squamous Epi Cells Auto 1 /HPF 12/09/18 10:12 Urine Mucus (Auto) RARE /LPF 12/09/18 10:12 Urine Ascorbic Acid 20 (NEGATIVE) H 12/09/18 10:12 12/08/18 12/09/18 12/09/18 22:30 01:10 07:11 Troponin I < 0.012 < 0.012 < 0.012 NT-Pro-B Natriuret Pep 12/09/18 15:10 Troponin I NT-Pro-B Natriuret Pep 63 Impressions: Chest X-Ray 12/08/18 23:46 IMPRESSION: No evidence of acute cardiopulmonary disease. Chest/Abdomen CTA 12/09/18 00:00 IMPRESSION: No evidence of pulmonary embolism or other acute abnormality within the chest. 1.7 cm incidental thyroid nodule. Recommend thyroid US. Reference: J Am Shital Radiol. 2015 Mar;12(2): 143-50 TECHNICAL DOCUMENTATION: Quality ID # 436: Final reports with documentation of one or more dose reduction techniques (e.g., Automated exposure control, adjustment of the mA and/or kV according to patient size, use of iterative reconstruction technique) copyright 2011 [employer]- All Rights Reserved Head CT 12/09/18 00:00 IMPRESSION: NORMAL BRAIN CT WITHOUT CONTRAST. EVIDENCE OF ACUTE STROKE: NO. Carotid Doppler Study 12/10/18 00:00 IMPRESSION: BILATERAL PLAQUE. LESS THAN 50% STENOSIS OF THE RIGHT INTERNAL CAROTID ARTERY. 50- 69% STENOSIS OF THE LEFT INTERNAL CAROTID ARTERY. Thyroid Ultrasound 12/10/18 00:00 IMPRESSION: Solitary nodules in both lobes. 1 year follow-up is recommended. Plan Plan of Treatment: Patient is discharged home in stable condition. She is advaised to: Follow up with primary care provider within 1 week. Take medications as prescribed. Eat a heart healthy diet. Change positions slowly. Drink plenty of fluids. Avoid known respiratory triggers. Return to the emergency department as needed for concerning symptoms. Stroke Is this a Stroke Patient?: No Acute Heart Failure - Is this a Heart Failure Patient?: No
== END 2018-12-10 19:09 | disposition home or self-care (01) ==
LOC: ER 22:15 → EH 12-09 02:40 → 5 12-09 03:23
PROVIDERS: ADMIT Internal Medicine; ATTEND Internal Medicine
DX: R07.89 Other chest pain (principal); R55 Syncope and collapse; N17.9 Acute kidney failure, unspecified; I10 Essential (primary) hypertension; F41.1 Generalized anxiety disorder; I95.1 Orthostatic hypotension; R06.02 Shortness of breath; I65.23 Occlusion and stenosis of bilateral carotid arteries; E78.5 Hyperlipidemia, unspecified; R05 Cough; J30.2 Other seasonal allergic rhinitis; G47.00 Insomnia, unspecified; F32.9 Major depressive disorder, single episode, unspecified; R94.31 Abnormal electrocardiogram [ECG] [EKG]; E04.2 Nontoxic multinodular goiter; Z79.82 Long term (current) use of aspirin; Z79.899 Other long term (current) drug therapy; Z82.3 Family history of stroke
CPT/HCPCS: 93005; 99285; 36415 ×2; 84443; 85025; 85027; 80048; 80053; 81001; 84484 ×2; 83036; 85379; 80061; 83880; 93017; 93880; 71045; 76536; 78452; 70450; 71275; 93010; A9500; J2785; A9270 ×20; J3490 ×3; J7030; Q9969